=== PATIENT | male | born 1950 | race Caucasian/White ===

== ENCOUNTER → 2021-04-11 16:13 | Outpatient (CLI) | payer MEDICARE, SELFPAY ==
--- NOTE | ~2021-04-11 | XR_ITS ---
EXAMINATION: XR knee LT min 4V DATE: 04/11/2021 16:38 INDICATION: Left knee pain and swelling. TECHNIQUE: 4 views of left knee were obtained. COMPARISON: None. FINDINGS: Bone alignment is normal. No fracture. There is chondrocalcinosis of the menisci. No joint space narrowing or osteophytes. There is a small knee joint effusion. IMPRESSION: 1. Small knee joint effusion. Reviewed, dictated and finalized at location B.
== END ==
PROVIDERS: PCP Internal Medicine Gastroenterology; Visit Provider Internal Medicine Gastroenterology
DX: M79.89 Other specified soft tissue disorders (principal); M25.461 Effusion, right knee
CPT/HCPCS: 73564

== ENCOUNTER 2021-07-16 10:53 | Outpatient (CLI) | payer MEDICARE, SELFPAY | END 2021-07-16 10:54 | disposition home or self-care (01) | LOC: ANHAUDIO 10:54 | PROVIDERS: PCP Internal Medicine Gastroenterology; Visit Provider Otolaryngology | DX: H93.13 Tinnitus, bilateral (principal); H90.3 Sensorineural hearing loss, bilateral | CPT/HCPCS: 92557; 92567 ==

== ENCOUNTER 2021-12-15 09:16 | Outpatient (CLI) | payer MEDICARE, SELFPAY | END 2021-12-15 09:17 | disposition home or self-care (01) | LOC: ANHAUDIO 09:17 | PROVIDERS: PCP Internal Medicine Gastroenterology; Referring Provider Otolaryngology; Visit Provider Otolaryngology | DX: H93.13 Tinnitus, bilateral (principal); H91.93 Unspecified hearing loss, bilateral | CPT/HCPCS: 92557; 92567 ==

== ENCOUNTER 2024-02-02 14:25 | Outpatient (CLI) | payer MEDICARE, SELFPAY | END 2024-02-02 14:26 | disposition home or self-care (01) | LOC: ANHAUDASC 14:26 | PROVIDERS: PCP Internal Medicine Gastroenterology; Visit Provider Otolaryngology | DX: H91.93 Unspecified hearing loss, bilateral (principal) | CPT/HCPCS: 92557; 92567 ==

== ENCOUNTER 2024-03-14 11:00 | Outpatient (RCR) | payer MEDICARE, SELFPAY | END 2024-05-14 23:59 | disposition home or self-care (01) | LOC: ANHAUDASC 11:00 | PROVIDERS: PCP Internal Medicine Gastroenterology; Visit Provider Otolaryngology | DX: Z46.1 Encounter for fitting and adjustment of hearing aid (principal) | CPT/HCPCS: 99199; V5261 ==